=== PATIENT | male | born 1970 | race African-American/Black ===

== ENCOUNTER → 2017-07-06 | Outpatient (CLI) | payer MEDICAID ==
[~2017-07-06] MED LIST: IBUP-2028 PO; SIMV40TA5 PO
== END | disposition home or self-care (01) ==
LOC: US 07:02
PROVIDERS: ATTEND Internal Medicine Gastroenterology
DX: R10.9 Unspecified abdominal pain (principal); K21.9 Gastro-esophageal reflux disease without esophagitis; I10 Essential (primary) hypertension; E78.5 Hyperlipidemia, unspecified
CPT/HCPCS: 76700

== ENCOUNTER → 2017-08-09 | Outpatient (CLI) | payer MEDICAID | END | disposition home or self-care (01) | LOC: MRI 07:16 | PROVIDERS: ATTEND Internal Medicine Gastroenterology | DX: K57.30 Diverticulosis of large intestine without perforation or abscess without bleeding (principal) | CPT/HCPCS: 72195; 74181 ==

== ENCOUNTER 2017-11-02 15:35 | Emergency (ER) | payer MEDICAID ==
[~2017-11-02] VITALS: Ht 175.3 cm; Wt 73.0 kg
[2017-11-02 17:31] LABS: CLARITY URINE CLEAR (CLEAR); COLOR URINE YELLOW (YELLOW); KETONES URINE 1+ (NEGATIVE); LEUKOCYTE ESTERASE URINE NEGATIVE (NEGATIVE); NITRITE URINE NEGATIVE (NEGATIVE); OCCULT BLOOD URINE NEGATIVE (NEGATIVE); PH URINE 7.5 (4.5-8.0); PROTEIN URINE NEGATIVE (NEGATIVE); SPECIFIC GRAVITY URINE 1.025 (1.005-1.030)
[2017-11-02 19:30] LABS: BASOPHILS % 0.8 % (0.0-2.0); EOSINOPHILS % 5.4 % (0.0-5.0); MEAN CORPUSCULAR VOLUME 86.9 fL (80.0-94.0); MEAN PLATELET VOLUME 9.5 fl (7.4-10.4); NEUTROPHILS % 35.8 % (40.0-76.0); PLATELET 196 x1000/uL (130-400); RED BLOOD CELL COUNT 5.87 mill/uL (4.7-6.1); RED CELL DISTRIBUTION WIDTH 13.3 % (11.6-14.6)
[2017-11-02 19:36] LABS: CHLORIDE 104 mEq/L (98-107)
[2017-11-02 19:38] LABS: PROTHROMBIN TIME 10.7 sec (9.4-11.6)
[2017-11-02] MEDS ORDERED: IOHEXOL-300 100 ML BOTTLE ONE (21:00)
[2017-11-02 22:40] VITALS: BP 120/74
== END 2017-11-02 22:40 | disposition home or self-care (01) ==
LOC: ER 15:46
DX: N45.1 Epididymitis (principal); K57.90 Diverticulosis of intestine, part unspecified, without perforation or abscess without bleeding; E78.00 Pure hypercholesterolemia, unspecified
CPT/HCPCS: 36415; 74177; 76870; 80053; 81003; 83690; 85025; 85610; 93976; 99285; Q9967